=== PATIENT | female | born 1960 | race Caucasian/White ===

== ENCOUNTER 2021-08-09 06:24 | Day surgery (SDC) | payer BC, OTHER ==
[~2021-08-09 06:24] MED LIST: Sodium Chloride 0.9% 10 ML Syringe FLUSH PRN
[2021-08-09] MEDS ORDERED: Midazolam 1 MG/ML 2 ML SDV IV ONE (06:25)
[2021-08-09] MEDS ORDERED: Propofol 200 MG/20 ML SDV IV ONE (06:25)
[2021-08-09] MEDS: Lactated Ringers 1,000 ML IV SCH (07:29)
[2021-08-09 08:35] VITALS: BP 144/72; PULSE 60
== END 2021-08-09 08:48 | disposition home or self-care (01) ==
LOC: FB.SDS 06:24
PROVIDERS: ATTEND Surgery
DX: R19.4 Change in bowel habit (principal); K64.4 Residual hemorrhoidal skin tags; K21.9 Gastro-esophageal reflux disease without esophagitis; E78.5 Hyperlipidemia, unspecified; I10 Essential (primary) hypertension; E66.9 Obesity, unspecified; Z79.899 Other long term (current) drug therapy; Z79.82 Long term (current) use of aspirin; Z88.0 Allergy status to penicillin; Z87.891 Personal history of nicotine dependence; Z68.33 Body mass index [BMI] 33.0-33.9, adult; Z98.890 Other specified postprocedural states
CPT/HCPCS: J2250; J2704; J7120

== ENCOUNTER 2023-06-20 14:38 | Emergency (ER) | payer BC ==
[2023-06-20] MEDS ORDERED: Ondansetron 4 MG Tab.DIS PO ONE (14:39)
[2023-06-20] MEDS ORDERED: Acetaminophen/oxyCODONE 325-5 MG Tab PO ONE (14:39)
[2023-06-20] MEDS ORDERED: Naloxone 0.4 MG/ML SDV IVPUSH PRN (14:47)
[2023-06-20] MEDS ORDERED: Sodium Chloride 0.9% 10 ML Syringe FLUSH PRN (14:47)
[2023-06-20] MEDS: Sodium Chloride 0.9% 1,000 ML IV ONE (14:59)
[2023-06-20] MEDS: HYDROmorphone 2 MG/ML SDV IVPUSH ONE (14:59)
[2023-06-20] MEDS: Ondansetron 4 MG/2 ML SDV IVPUSH ONE (14:59)
[2023-06-20 15:00] LABS: APPEARANCE,URINE CLEAR (CLEAR); BACTERIA,URINE RARE (NS); BILIRUBIN,URINE NEGATIVE (NEGATIVE); COLOR,URINE YELLOW (YELLOW); GLUCOSE,URINE NORMAL (NORMAL); KETONES,URINE NEGATIVE (NEGATIVE); LEUKOCYTE ESTERASE,URINE NEGATIVE (NEGATIVE); NITRITE,URINE NEGATIVE (NEGATIVE); OCCULT BLOOD,URINE TRACE (NEGATIVE); PROTEIN,URINE 30 mg/dL (NEGATIVE); RBC,URINE NOT SEEN (0-5); SQUAMOUS EPITHELIAL CELLS,UR FEW (NS,R,O); UROBILINOGEN,URINE NORMAL (NEGATIVE); WBC,URINE 0-5 (0-5)
[2023-06-20 15:03] LABS: BASOPHILS PERCENT AUTO 0.6 % (0.2-1.5); EOSINOPHILS ABSOLUTE AUTO 0.2 x10-3/uL (0.0-0.8); EOSINOPHILS PERCENT AUTO 3.6 % (0.6-8.1); HEMATOCRIT 33.5 % (34.2-48.2); HEMOGLOBIN 10.8 g/dL (11.4-15.5); LYMPHOCYTES ABSOLUTE AUTO 1.8 x10-3/uL (1.0-4.4); LYMPHOCYTES PERCENT AUTO 28.7 % (18.4-52.1); MEAN CORPUSCULAR HEMOGLOBIN 25.8 pg (23.9-33.9); MEAN CORPUSCULAR HGB CONC 32.1 g/dL (31.9-34.8); MEAN CORPUSCULAR VOLUME 80.2 fL (76.7-100.5); MONOCYTES ABSOLUTE AUTO 0.5 x10-3/uL (0.3-1.0); MONOCYTES PERCENT AUTO 8.1 % (4.4-15.7); NEUTROPHILS ABSOLUTE AUTO 3.6 x10-3/uL (1.5-6.3); PLATELET COUNT,PLT 384 x10(3)uL (151-488); RED BLOOD CELL COUNT 4.18 x10(6)uL (3.60-5.20); RED CELL DISTRIBUTION WIDTH 14.6 % (12.3-16.5); WHITE BLOOD CELL COUNT,WBC 6.2 x10-3/uL (3.0-10.3)
[2023-06-20 15:06] LABS: BLOOD UREA NITROGEN,BUN 12 mg/dL (7-18); BUN/CREATININE RATIO 13.3 (9-20); CARBON DIOXIDE,CO2 29 mmol/L (21-32); CHLORIDE,CL 104 mmol/L (100-110); CREATININE 0.9 mg/dL (0.55-1.02); ESTIMATED GFR 71 mL/min (>60); GLUCOSE RANDOM 112 mg/dL (80-116); POTASSIUM,K 3.7 mmol/L (3.5-5.3); SODIUM,NA 141 mmol/L (135-145)
[2023-06-20] MEDS: Ketorolac 30 MG/ML SDV IVPUSH ONE (15:22)
[2023-06-20] MEDS: Sodium Chloride 0.9% 1,000 ML IV SCH (16:52)
[2023-06-20] MEDS: Metoclopramide 10 MG/2 ML SDV IVPUSH ONE (16:52)
[2023-06-20] MEDS: fentaNYL 100 MCG/2 ML SDV IVPUSH ONE (16:53)
[2023-06-20 17:21] VITALS: BP 111/52; PULSE 60
[2023-06-20] MEDS: Tamsulosin 0.4 MG Cap.ER PO ONE (18:18)
== END 2023-06-20 18:59 | disposition home or self-care (01) ==
LOC: FB.ED 14:38
DX: N13.2 Hydronephrosis with renal and ureteral calculous obstruction (principal); I10 Essential (primary) hypertension; E78.00 Pure hypercholesterolemia, unspecified; J45.909 Unspecified asthma, uncomplicated; K21.9 Gastro-esophageal reflux disease without esophagitis; E66.9 Obesity, unspecified; Z79.82 Long term (current) use of aspirin; Z79.899 Other long term (current) drug therapy; Z88.0 Allergy status to penicillin; Z68.34 Body mass index [BMI] 34.0-34.9, adult
CPT/HCPCS: 36415; 74176; 80048; 81001; 85025; 86140; 96361; 96374; 96375; 99284; 99284-25; A9270-GY; J1170; J1885; J2405; J2765; J3010; J7030; Q0162

== ENCOUNTER 2023-11-04 16:30 | Emergency (ER) | payer BC, MEDICARE ==
[2023-11-04] MEDS ORDERED: Acetaminophen/oxyCODONE 325-5 MG Tab PO ONE (16:31)
[2023-11-04] MEDS ORDERED: Sodium Chloride 0.9% 10 ML Syringe FLUSH PRN (16:52)
[2023-11-04] MEDS: Sodium Chloride 0.9% 1,000 ML IV SCH (17:05)
[2023-11-04] MEDS: Ketorolac 30 MG/ML SDV IVPUSH ONE (17:05)
[2023-11-04] MEDS: Morphine 4 MG/ML VIAL IVPUSH ONE (17:08)
[2023-11-04 17:19] LABS: BASOPHILS ABSOLUTE AUTO 0.1 x10-3/uL (0.0-0.1); BASOPHILS PERCENT AUTO 0.8 % (0.2-1.5); EOSINOPHILS ABSOLUTE AUTO 0.1 x10-3/uL (0.0-0.8); EOSINOPHILS PERCENT AUTO 1.4 % (0.6-8.1); HEMATOCRIT 33.3 % (34.2-48.2); HEMOGLOBIN 10.7 g/dL (11.4-15.5); LYMPHOCYTES ABSOLUTE AUTO 1.7 x10-3/uL (1.0-4.4); MEAN CORPUSCULAR HEMOGLOBIN 24.6 pg (23.9-33.9); MEAN CORPUSCULAR HGB CONC 32.2 g/dL (31.9-34.8); MEAN CORPUSCULAR VOLUME 76.4 fL (76.7-100.5); MEAN PLATELET VOLUME 7.4 fL (7.1-12.4); MONOCYTES PERCENT AUTO 9.8 % (4.4-15.7); NEUTROPHILS ABSOLUTE AUTO 6.8 x10-3/uL (1.5-6.3); PLATELET COUNT,PLT 311 x10(3)uL (151-488); RED BLOOD CELL COUNT 4.35 x10(6)uL (3.60-5.20); RED CELL DISTRIBUTION WIDTH 15.6 % (12.3-16.5); WHITE BLOOD CELL COUNT,WBC 9.7 x10-3/uL (3.0-10.3)
[2023-11-04 17:24] LABS: BILIRUBIN,URINE NEGATIVE (NEGATIVE); GLUCOSE,URINE NORMAL (NORMAL); KETONES,URINE 15 mg/dL (NEGATIVE); LEUKOCYTE ESTERASE,URINE NEGATIVE (NEGATIVE); NITRITE,URINE NEGATIVE (NEGATIVE); OCCULT BLOOD,URINE NEGATIVE (NEGATIVE); PH,URINE 6.5 (5.0-6.5); PROTEIN,URINE NEGATIVE (NEGATIVE); UROBILINOGEN,URINE NORMAL (NEGATIVE)
[2023-11-04 17:26] LABS: BLOOD UREA NITROGEN,BUN 13 mg/dL (7-18); BUN/CREATININE RATIO 14.4 (9-20); CALCIUM 9.1 mg/dL (8.6-10.2); CARBON DIOXIDE,CO2 31 mmol/L (21-32); CHLORIDE,CL 98 mmol/L (100-110); CREATININE 0.9 mg/dL (0.55-1.02); EST CRCL DRUG DOSING (CG) 49.29 mL/min; ESTIMATED GFR 71 mL/min (>60); GLUCOSE RANDOM 101 mg/dL (80-116); SODIUM,NA 135 mmol/L (135-145)
[2023-11-04 17:31] LABS: APPEARANCE,URINE CLEAR (CLEAR); COLOR,URINE YELLOW (YELLOW)
[2023-11-04] MEDS ORDERED: Tamsulosin 0.4 MG Cap.ER PO ONE (17:47)
[2023-11-04] MEDS ORDERED: Naloxone 0.4 MG/ML SDV IVPUSH PRN (18:01)
[2023-11-04] MEDS: HYDROmorphone 2 MG/ML SDV IVPUSH STA (18:08)
[2023-11-04 18:27] VITALS: BP 153/72; PULSE 66
== END 2023-11-04 18:57 | disposition home or self-care (01) ==
LOC: FB.ED 16:30
DX: N20.0 Calculus of kidney (principal); E78.00 Pure hypercholesterolemia, unspecified; I10 Essential (primary) hypertension; K21.9 Gastro-esophageal reflux disease without esophagitis; J45.909 Unspecified asthma, uncomplicated; E66.9 Obesity, unspecified; Z79.82 Long term (current) use of aspirin; Z79.899 Other long term (current) drug therapy; Z88.0 Allergy status to penicillin
CPT/HCPCS: 36415; 74176; 80048; 81003; 85025; 96361; 96374; 96375; 99284; A9270; J1170; J1885; J2270; J7030